=== PATIENT | female | born 1955 | race Caucasian/White ===

== ENCOUNTER → 2016-06-03 | Outpatient (CLI) | payer BC ==
--- NOTE | 2016-06-03 10:10 | DX ---
Left Femur, 4 views History: Pain posteriorly x2 weeks without trauma, previous knee surgery in 1977 Comparison: None Findings: There is possibly soft tissue gas in the intermuscular planes of the thigh. No hip or femor al shaft abnormality identified. No soft tissue calcification, ossification or radiopaque foreign mat erial. Incidentally noted is a possible 3 x 2 cm soft tissue mass in the left hemipelvis. Impression: 1. Soft tissue gas versus fatty atrophy. Consider contrast CT for further evaluation, inc desmond #2 below. 2. Possible left hemipelvis soft tissue mass. This could be evaluated on CT at the same time as the t high. Results called to Chrissy Lin at 10:06 am.
--- NOTE | 2016-06-03 10:41 | DX ---
Left Knee, 2 views History: Pain, no discrete trauma, possible muscle sprain Findings: There is chondrocalcinosis of the medial lateral meniscus. The knee is normally aligned. T here are small medial marginal osteophytes. There are small posterior patellar osteophytes. Alignment and mineralization are normal. There is been a previous surgery of the proximal anterior tibia with an abandoned screw track present suggesting realignment of the patellar tendon. There is no evidence of a knee joint effusion. Impression: Chondrocalcinosis and mild degenerative changes.
== END ==
LOC: BRMIMAGING 08:55
PROVIDERS: ATTEND Registered Nurse
DX: M11.262 Other chondrocalcinosis, left knee (principal); M17.12 Unilateral primary osteoarthritis, left knee
CPT/HCPCS: 73551-PO; 73560-PO

== ENCOUNTER → 2017-02-27 | Outpatient (CLI) | payer BC | LOC: FIMAGING 06:58 | PROVIDERS: ATTEND Orthopaedic Surgery | DX: M17.11 Unilateral primary osteoarthritis, right knee (principal); M11.261 Other chondrocalcinosis, right knee ==